=== PATIENT | female | born 1970 | race Caucasian/White ===

== ENCOUNTER 2018-10-13 20:22 | Emergency (ER) | payer MEDICAID, SELFPAY ==
[2018-10-13 20:23] VITALS: BP 142/84; PULSE 96; RESP 16; TEMP 36.9; O2SAT 96; BMI 22.4
--- NOTE | 2018-10-13 21:00 | RAD_ITS ---
STUDY: X-RAY - LEFT FOOT CLINICAL: Female, 48 years old. Trauma TECHNIQUE: 3 view(s) of the foot. COMPARISON: None. FINDINGS: Normal talus, calcaneus, and tarsal bones. Normal visualized subtalar, talonavicular, calcaneocuboid, tarsal and tarsometatarsal articulations. Normal metatarsi. Normal metatarsophalangeal joint of the great toe. Normal tibial and fibular sesamoid bones. Normal interphalangeal joint of the great toe. Normal phalanges of the great toe. Normal second through fifth metatarsophalangeal joints. Normal interphalangeal joints and phalanges of the lesser toes. The soft tissue structures are unremarkable. RAD/Foot min 3 Views IMPRESSION: Normal x-ray examination of the foot. Electronically Signed: Misael Kramer MD at 21:27 EDT , Service support ,
--- NOTE | 2018-10-13 21:32 | ED.DCSUM_ITS ---
- ER Visit Summary Date of Service: 10/13/18 Chief Complaint: [Injury to left foot] History of Present Illness: The patient is a 48 F [patient presents with a left foot injury that occurred approximately 1 PM. Patient states that she was coming down the steps when she slid off the last step and twisted her foot and ankle. Patient states pain is progressively worsened to the point that now she is having a hard time bearing weight secondary to pain. She denies any other injuries.] Physical Examination: [Left lower extremity-patient has some soft tissue swelling over the dorsal aspect of the midfoot. Patient has some tenderness over the base of the fifth metatarsal. Neurovascular intact distally. No pain at the medial or lateral malleolus. No pain at the proximal fibular head. ] Test Results: [The left foot were normal] Emergency Department Course and Treatment: [Was given crutches and postop shoe] Treatment Plan: [Follow-up with her primary care physician or orthopedic surgeon within the next 5 to 7 days. Patient given a prescription for [place] for pain. Patient advised to ice and elevate extremity.] Disposition: [Discharged to home stable condition.] Impression: [Left foot sprain] This note was generated with [employer] dictation software. It may contain incorrect words, spelling, and punctuation that were not noted in review of the chart prior to signing ED Disposition - Plan for ED Patient: Referrals: Care Physician,No Primary [Primary Care Provider] -
--- NOTE | 2018-10-13 21:34 | ED.DEP ---
ED Disposition - Plan for ED Patient: Instructions: Sprain Foot Prescriptions: Hydrocodone Bitart/Apap 5-325 [[place] 5MG-325MG] 1 tab PO Q4H PRN PRN 2 Days #10 tab PRN Reason: Pain Prescription Printed Referrals: Care Physician,No Primary [Primary Care Provider] - Sylvia Solares DO [STAFF PHYSICIAN] - 5-7 Days
[2018-10-13 22:12] VITALS: BP 102/62; PULSE 72; RESP 18
== END 2018-10-13 22:13 | disposition home or self-care (01) ==
LOC: ED 20:43
PROVIDERS: Emergency Provider Emergency Medicine
DX: S93.602A Unspecified sprain of left foot, initial encounter (principal); W50.2XXA Accidental twist by another person, initial encounter; Y93.9 Activity, unspecified; Y92.89 Other specified places as the place of occurrence of the external cause; Y99.9 Unspecified external cause status; H40.9 Unspecified glaucoma; Z72.0 Tobacco use
CPT/HCPCS: 73630; 99283

== ENCOUNTER → 2018-10-28 13:48 | Outpatient (CLI) | payer MEDICAID, SELFPAY ==
[2018-10-28 13:42] VITALS: BMI 22.4
--- NOTE | 2018-10-28 13:49 | RAD_ITS ---
STUDY: X-RAY - LEFT FOOT CLINICAL: Pain. TECHNIQUE: 3 view(s) of the foot. COMPARISON: Radiographs 09/13/2018. FINDINGS: Normal talus, calcaneus, and tarsal bones. Normal visualized subtalar, talonavicular, calcaneocuboid, tarsal and tarsometatarsal articulations. Normal metatarsi. Normal metatarsophalangeal joint of the great toe. Normal tibial and fibular sesamoid bones. Normal interphalangeal joint of the great toe. Normal phalanges of the great toe. Normal second through fifth metatarsophalangeal joints. Normal interphalangeal joints and phalanges of the lesser toes. The soft tissue structures are unremarkable. RAD/Foot min 3 Views IMPRESSION: Normal x-ray examination of the left foot. Electronically Signed: Dominick Loo MD at 15:11 EDT Tel , Service support ,
== END ==
PROVIDERS: Referring Provider Orthopaedic Surgery; Visit Provider Orthopaedic Surgery
DX: M79.672 Pain in left foot (principal)
CPT/HCPCS: 73630

== ENCOUNTER → 2019-11-04 10:08 | Outpatient (CLI) | payer MEDICAID, SELFPAY ==
[2019-11-04 09:37] VITALS: BMI 25.2
[2019-11-04 12:27] LABS: Absolute Lymphocyte Count 1.72 X10^3/uL (0.83-4.51); Basophil# 0.03 X10^3/uL; Basophil% 0.4 % (0-1); Eosinophil# 0.12 X10^3/uL; Eosinophils% 1.4 % (0-5); Hematocrit 40.7 % (37-47); Hemoglobin 13.2 g/dL (12.0-15.0); Lymphocyte # 1.72 X10^3/ul (4.0); Lymphocyte % 20.5 % (19-41); Mean Corp Hgb Conc 32.4 g/dL (32-36); Mean Corpuscular Hgb 28.7 pg (27.0-32.0); Mean Corpuscular Volume 88.5 fL (81-99); Mean Platelet Vol. 10.5 fl (6.2-12.0); Monocyte# 0.49 X10^3/uL; Monocyte% 5.8 % (0-10); NRBC Flagged by Analyzer 0 % (0-5); Neutrophil % 71.7 % (47-70); Platelet Count 337 K/mm3 (150-450); RBC Distribution Width CV 11.7 % (11.6-14.6); RBC Distribution Width SD 37.5 fl (35.1-43.9); White Blood Count 8.4 K/mm3 (4.4-11.0)
[2019-11-04 12:56] LABS: ALB/GLOB Ratio 0.9 RATIO (0.9-2.4); AST(SGOT) 15 U/L (15-37); Alanine Aminotransfer ALT/SGPT 18 U/L (13-56); Albumin, Serum 3.5 g/dL (3.2-5.0); Alkaline Phosphatase 102 U/L (45-117); Anion Gap 5 (5-15); BUN 15 mg/dL (7-18); BUN/Creat Ratio 20.7 RATIO (10-20); Calcium,Total 9.5 mg/dL (8.5-10.1); Chloride 107 mmol/L (98-107); Cholesterol 148 mg/dL (200); Creatinine, Serum 0.72 mg/dL (0.55-1.02); EST Glomerular Filtration Rate 90 mL/min (>60); Est Glom Filt Rate - Afr Amer 109 mL/min (>60); Glucose 106 mg/dL (74-106); High Density Lipoprotein 38 mg/dL; Potassium 3.9 mmol/L (3.5-5.1); Protein, Total 7.5 g/dL (6.4-8.2); Sodium Level 140 mmol/L (136-145); Triglycerides 123 mg/dL; Very Low Density Lipoprotein 25 mg/dL (5-40)
== END ==
PROVIDERS: PCP Internal Medicine; Referring Provider Internal Medicine; Visit Provider Internal Medicine
DX: Z00.00 Encounter for general adult medical examination without abnormal findings (principal)
CPT/HCPCS: 36415; 80053; 80061; 85025